=== PATIENT | female | born 1955 | race Two or more races ===

== ENCOUNTER 2019-02-19 16:11 | Emergency (ER) | payer SELFPAY ==
[~2019-02-19] VITALS: Ht 160 cm; Wt 63.5 kg
[2019-02-19] MEDS ORDERED: Haloperidol 5mg/ml Inj IM ONE (16:15)
[2019-02-19] MEDS ORDERED: DiphenhydrAMINE 50mg/ml Inj IM ONE (16:15)
[2019-02-19] MEDS ORDERED: LORazepam Inj 2mg/ml 1ml IM ONE (16:15)
[2019-02-19] MEDS ORDERED: LR 1000ml 1,000 ML IV ONE (16:15)
--- NOTE | 2019-02-19 16:15 | Emergency Room Report ---
History of Present Illness General Chief Complaint: Behavioral Complaint Source: EMS Present Illness HPI 63-year-old female presents with acute alcohol intoxication, just prior to arrival patient was seen sitting on the street, concerned passerby called EMS, EMS picked her up she has no complaints at this time she is slurring her speech telling people to leave her alone she is scratching other people, she has no complaints she states she drank, history is limited secondary to her current intoxication. Allergies: Coded Allergies: No Known Allergies (Unverified , 02/19/19) Patient History Limited by: medical condition - Currently intoxicated Past Medical History: see triage record Social History: Reports: alcohol use Last Menstrual Period: na Reviewed Nursing Documentation: PMH: Agreed; PSxH: Agreed Nursing Documentation-PMH Past Medical History: No History, Except For Hx Hypertension: Yes Hx Diabetes: Yes History Of Psychiatric Problem: Yes - schizophrenia Review of Systems All Other Systems: limited - Currently intoxicated Physical Exam Vital Signs Date Time Temp Pulse Resp B/P (MAP) Pulse Ox O2 Delivery O2 Flow Rate FiO2 02/19/19 16:03 98.1 53 20 140/73 (95) 98 Room Air Sp02 EP Interpretation: reviewed, normal General Appearance: well appearing, no apparent distress, alert Head: normocephalic, atraumatic Eyes: bilateral eye PERRL, bilateral eye EOMI ENT: uvula midline, moist mucus membranes Neck: supple, thyroid normal, supple/symm/no masses Respiratory: lungs clear, no respiratory distress, no retraction, no accessory muscle use Cardiovascular #1: normal peripheral pulses, regular rate, rhythm, no edema, no gallop, no murmur Gastrointestinal: non tender, soft, no guarding, no rebound Musculoskeletal: normal inspection Neurologic: alert, responsive Psychiatric: mood/affect normal, other - Patient currently intoxicated slurring her words Skin: no rash, warm/dry Medical Decision Making Diagnostic Impression: Primary Impression: Alcohol intoxication Qualified Codes: F10.920 - Alcohol use, unspecified with intoxication, uncomplicated Additional Impression: Cocaine abuse ER Course 63-year-old female presents with acute alcohol intoxication, patient is currently mildly to moderately combative, will provide patient with chemical restraint CT brain negative, tox is positive for cocaine and alcohol intoxication Will disposition patient when patient fady Laboratory Tests Test 02/19/19 17:10 White Blood Count 5.2 K/UL (4.8-10.8) Red Blood Count 4.95 M/UL (4.20-5.40) Hemoglobin 14.6 G/DL (12.0-16.0) Hematocrit 43.7 % (37.0-47.0) Mean Corpuscular Volume 88 FL (80-99) Mean Corpuscular Hemoglobin 29.4 PG (27.0-31.0) Mean Corpuscular Hemoglobin Concent 33.3 G/DL (32.0-36.0) Red Cell Distribution Width 13.0 % (11.6-14.8) Platelet Count 262 K/UL (150-450) Mean Platelet Volume 6.2 FL (6.5-10.1) L Neutrophils (%) (Auto) 48.7 % (45.0-75.0) Lymphocytes (%) (Auto) 42.8 % (20.0-45.0) Monocytes (%) (Auto) 6.4 % (1.0-10.0) Eosinophils (%) (Auto) 0.6 % (0.0-3.0) Basophils (%) (Auto) 1.6 % (0.0-2.0) Sodium Level 142 MMOL/L (136-145) Potassium Level 3.5 MMOL/L (3.5-5.1) Chloride Level 106 MMOL/L (98-107) Carbon Dioxide Level 23 MMOL/L (21-32) Anion Gap 13 mmol/L (5-15) Blood Urea Nitrogen 16 mg/dL (7-18) Creatinine 1.1 MG/DL (0.55-1.30) Estimate Glomerular Filtration Rate 50.0 mL/min (>60) Glucose Level 93 MG/DL (74-106) Calcium Level 8.7 MG/DL (8.5-10.1) Total Bilirubin 0.3 MG/DL (0.2-1.0) Aspartate Amino Transferase (AST) 18 U/L (15-37) Alanine Aminotransferase (ALT) 10 U/L (12-78) L Alkaline Phosphatase 57 U/L (46-116) Total Protein 7.2 G/DL (6.4-8.2) Albumin 3.6 G/DL (3.4-5.0) Globulin 3.6 g/dL Albumin/Globulin Ratio 1.0 (1.0-2.7) Salicylates Level 2.1 ug/mL (2.8-20) L Urine Opiates Screen Negative (NEGATIVE) Acetaminophen Level < 2 MCG/ML (10-30) L Urine Barbiturates Screen Negative (NEGATIVE) Phencyclidine (PCP) Screen Negative (NEGATIVE) Urine Amphetamines Screen Negative (NEGATIVE) Urine Benzodiazepines Screen Negative (NEGATIVE) Urine Cocaine Screen Positive (NEGATIVE) H Urine Marijuana (THC) Screen Negative (NEGATIVE) Serum Alcohol 259 mg/dL CT/MRI/US Diagnostic Results CT/MRI/US Diagnostic Results : Impression Preliminary Findings Only See Final Report For Complete Findings CT HEAD Without Contrast: INDICATION: AMS TECHNIQUE: Multiple, contiguous 2.5 mm axial cuts of the brain are obtained from the posterior fossa to the cranial vault. Sagittal and coronal reformatted images provided. No IV contrast is administered. COMPARISON: none FINDINGS: No intracranial hemorrhage, abnormal intra- or extra-axial collections or parenchymal lesions are seen. There are involutional changes with prominence of the sulci, basal cisterns and ventricles. Scattered white matter hypoattenuations are present, likely from small vessel disease. The young- white differentiation is preserved. No evidence of mass effect, midline shift, or edema. Scattered dural ossification along the falx most conspicuous anteriorly are noted. The osseous structures are unremarkable. The visualized portions of the paranasal sinuses are clear. IMPRESSION: 1. No acute intracranial process. 2. Involutional changes with small vessel disease. Radiologist: Jose Larios MD Study ready at 17:26 and initial results transmitted at 17:49 Last Vital Signs Date Time Temp Pulse Resp B/P (MAP) Pulse Ox O2 Delivery O2 Flow Rate FiO2 02/19/19 16:03 98.1 53 20 140/73 (95) 98 Room Air Disposition: HOME, SELF-CARE Condition: Stable Referrals: [facility] Patient Instructions: Alcohol Intoxication, [id number], Stimulant Use Disorder-Cocaine Additional Instructions: The patient was provided with discharge instructions, notified to follow-up with a primary care doctor and or specialist in the next 24-48 hours, and to return to the ED if they have worsening of their symptoms. Please note that this report is being documented using Rep technology. This can lead to erroneous entry secondary to incorrect interpretation by the dictating instrument. Lewis Mcpherson MD Feb 19, 2019 16:15
--- NOTE | 2019-02-19 16:40 | NUR ---
ED Nurse Note:pt. was BIBA from the street with ETOH and ALOC, she is screaming on arrival and A/Ox2 only, pt. 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
[2019-02-19 17:05] VITALS: BP 128/56
--- NOTE | 2019-02-19 17:16 | NUR ---
ED Nurse Note:CT scan of head was done
--- NOTE | 2019-02-19 17:16 | NUR ---
ED Nurse Note:skin is intact
[2019-02-19 17:44] LABS: BASOPHILS % (AUTO) 1.6 % (0.0-2.0); EOSINOPHILS % (AUTO) 0.6 % (0.0-3.0); HEMATOCRIT 43.7 % (37.0-47.0); HEMOGLOBIN 14.6 G/DL (12.0-16.0); LYMPHOCYTES % (AUTO) 42.8 % (20.0-45.0); MEAN CORPUSCULAR VOLUME 88 FL (80-99); MONOCYTES % (AUTO) 6.4 % (1.0-10.0); NEUTROPHILS % (AUTO) 48.7 % (45.0-75.0); PLATELET COUNT 262 K/UL (150-450); RED BLOOD COUNT 4.95 M/UL (4.20-5.40); WHITE BLOOD COUNT 5.2 K/UL (4.8-10.8)
[2019-02-19 17:45] LABS: ANION GAP 13 mmol/L (5-15); BLOOD UREA NITROGEN 16 mg/dL (7-18); CALCIUM 8.7 MG/DL (8.5-10.1); CARBON DIOXIDE 23 MMOL/L (21-32); CHLORIDE 106 MMOL/L (98-107); CREATININE 1.1 MG/DL (0.55-1.30); POTASSIUM 3.5 MMOL/L (3.5-5.1); SODIUM 142 MMOL/L (136-145)
[2019-02-19 17:49] LABS: ALANINE AMINOTRANSFERASE 10 U/L (12-78); ALBUMIN 3.6 G/DL (3.4-5.0); ALKALINE PHOSPHATASE 57 U/L (46-116); ASPARTATE AMINO TRANSFERASE 18 U/L (15-37); BILIRUBIN,TOTAL 0.3 MG/DL (0.2-1.0)
--- NOTE | 2019-02-19 17:50 | Diagnostic Imaging Report ---
Indication: Altered mental status Technique: Contiguous 5 mm thick transaxial imaging of the head obtained in a Siemens Sensation [address] scanner. Soft tissue and bone windows generated. Automatic Exposure Control was utilized. Total Dose length Product (DLP): 1369.[address] Dose Index Volume (CTDIvol): 70.38 mGy Comparison: none Findings: There is mild prominence of the ventricles, basal cisterns, and cerebral sulci consistent with atrophy. Mild, nonspecific, white matter hypoattenuation is noted throughout the brain consistent with chronic small vessel disease. There is no midline shift, edema, acute hemorrhage, mass effect, or abnormal extra-axial fluid collections. Bones are unremarkable. Impression: No acute intracranial bleed, mass effect or edema. Mild atrophy of the brain. Nonspecific white matter hypoattenuation probably due to chronic small vessel disease. [facility] has communicated the preliminary results to the Emergency Department. Their findings are largely concordant with this report. The CT scanner at [facility] is accredited by the [employer] and the scans are performed using dose optimization techniques as appropriate to a performed exam including Automatic Exposure control.
--- NOTE | 2019-02-19 19:00 | NUR ---
ED Nurse Note: Got report from EDIN Weems. Patient is in the bed sleeping. VSS at this time, no acute distress noticed.
[2019-02-19 19:51] VITALS: BP 125/65
--- NOTE | 2019-02-19 22:30 | NUR ---
ED Nurse Note: Patient is in the bed, sleeping. VSS at this time, no acute distress notised.
[2019-02-19 23:50] VITALS: BP 125/65
--- NOTE | 2019-02-20 00:05 | NUR ---
ED Nurse Note: Patient asked for bed cuellar, food and water. Bed cuellar and water were provided. Patient is calm, cooperative.
[2019-02-20 01:40] VITALS: BP 120/78
[2019-02-20 03:22] VITALS: BP 128/71
--- NOTE | 2019-02-20 04:38 | NUR ---
ED Nurse Note: Patient seen sleeping in bed. No SOB. Breathing even and unlabored. Afebrile. No further order at this time.
[2019-02-20 06:17] VITALS: BP 128/71
--- NOTE | 2019-02-20 06:17 | NUR ---
ED Nurse Note: Pt cleared ERMD for discharge. DC instructions was given and explained to pt and verbalized understanding of teachings. All medical deviecs such as ID band and IV line removed without complicatons. Pt is AAO x4, ambulatory and left with all personal belongings. Refused to provide place of destination after dc.
== END 2019-02-20 06:17 | disposition home or self-care (01) ==
LOC: EDBD 16:11 → EMR 19:02
DX: F10.920 Alcohol use, unspecified with intoxication, uncomplicated (principal); F14.10 Cocaine abuse, uncomplicated; E11.9 Type 2 diabetes mellitus without complications; I10 Essential (primary) hypertension; Y90.8 Blood alcohol level of 240 mg/100 ml or more; R41.82 Altered mental status, unspecified
CPT/HCPCS: 36415; 70450; 80053; 80307; 85025; 96360; 96372; 99284; G0480; J1200; J1630; 80329